=== PATIENT | male | born 1990 | race Caucasian/White ===

== ENCOUNTER 2017-05-14 23:17 | Inpatient (IN) | payer SELFPAY ==
[2017-05-15] MEDS ORDERED: Famotidine/PF 20 mg/2ml Vial ONE (00:13)
[2017-05-15] MEDS ORDERED: Ketorolac Tromethamine 30 MG/ML VIAL ONE (00:13)
[2017-05-15 00:54] LABS: #Basophils 0.1 thou/uL (0.0-0.2); #Eosinphils 0.1 thou/uL (0.0-0.7); #Lymphocytes 1.5 thou/uL (1.20-3.40); #Monocytes 0.8 thou/uL (0.11-0.59); %Basophils 0.7 % (0.0-1.0); %Eosinophils 1.1 % (0.0-10.0); %Lymphocytes 12.2 % (21.0-51.0); %Monocytes 6.2 % (0.0-10.0); %Neutrophils 79.8 % (42.0-75.0); Hemoglobin 14.5 g/dL (14.0-18.0); Mean Corpuscular HGB CONC 31.9 g/dL (32.0-36.0); Mean Corpuscular Hemoglobin 30.8 pg (27.0-31.0); Mean Corpuscular Volume 96.7 fl (80.0-94.0); Platelet Count 285 thou/uL (130-400); RBC Distribution Width 12.2 % (11.5-14.5); Red Blood Cell (RBC) Count 4.71 mill/uL (4.70-6.10); White Blood Cell (WBC) Count 12.5 thou/uL (4.8-10.8)
[2017-05-15 01:43] LABS: ALT (SGPT) 635 U/L (8-55); AST (SGOT) 526 U/L (5-34); Albumin 3.6 g/dL (3.5-5.0); Alkaline Phosphatase 61 U/L (40-150); Anion Gap 13 mmol/L (10-20); BUN (Urea Nitrogen) 14 mg/dL (8.9-20.6); Bilirubin, Total 1.4 mg/dL (0.2-1.2); Calc. Creatinine Clearance 0 mL/min (70-130); Calcium 8.5 mg/dL (7.8-10.44); Carbon Dioxide 23 mmol/L (22-29); Chloride 108 mmol/L (98-107); Estimated GFR-MDRD Greater than 90; Globulin 2.3 g/dL (2.4-3.5); Glucose 78 mg/dL (70-105); Lipase 20 U/L (8-78); Potassium 3.8 mmol/L (3.5-5.1); Protein, Total 5.9 g/dL (6.0-8.3); Sodium 140 mmol/L (136-145)
[2017-05-15 02:02] LABS: HBCM Index 0.09 S/CO (0-0.79); Hep A IgM AB Non-Reactive (NonReactive); Hep A IgM S/CO 0.13 S/CO (0-0.79); Hep B Surf Ag Non-Reactive S/CO (NonReactive); Hep C IgG Ab Non-Reactive (NonReactive); Hep C Index 0.07 S/CO (0-0.79); Hepatitis B Core IGM Abs Non-Reactive (NonReactive)
[2017-05-15 03:14] LABS: Acetaminophen Less than 6.0 mcg/mL (10.0-30.0); Alcohol Less than 10 mg/dL (Less than 10); Salicylate Less than 8.0 mg/dL (15.0-30.0)
[2017-05-15] MEDS ORDERED: Ondansetron HCl/PF 4 MG/2 ML Vial IVP PRN (03:38)
[2017-05-15] MEDS ORDERED: Acetaminophen 325 MG TAB PO PRN (03:38)
[2017-05-15 03:55] VITALS: BMI 21.6
[2017-05-15] MEDS: Sodium Chloride 0.9% 1,000 ML IV SCH ×3 (04:25→23:57)
[2017-05-15 05:05] LABS: INR-International Normal Ratio 1.4; PTT 34.2 SEC (22.9-36.1); Prothrombin Time 17.6 SEC (12.0-14.7)
[2017-05-15 05:10] LABS: Bilirubin, Direct 0.6 mg/dL (0.1-0.3); Bilirubin, Total 1.2 mg/dL (0.2-1.2)
[2017-05-15 05:14] LABS: ALT (SGPT) 690 U/L (8-55); AST (SGOT) 543 U/L (5-34); Albumin 3.2 g/dL (3.5-5.0); Alkaline Phosphatase 52 U/L (40-150); Anion Gap 10 mmol/L (10-20); BUN (Urea Nitrogen) 13 mg/dL (8.9-20.6); Bilirubin, Total 1.2 mg/dL (0.2-1.2); Calc. Creatinine Clearance 140 mL/min (70-130); Calcium 8.2 mg/dL (7.8-10.44); Carbon Dioxide 24 mmol/L (22-29); Chloride 109 mmol/L (98-107); Estimated GFR-MDRD Greater than 90; Gamma GT (GGT) 21 U/L (12-64); Glucose 78 mg/dL (70-105); Potassium 3.7 mmol/L (3.5-5.1); Protein, Total 5.2 g/dL (6.0-8.3); Sodium 139 mmol/L (136-145)
--- NOTE | 2017-05-15 05:44 | HP-2 ---
TIME AND DATE OF SERVICE: 3:15 a.m. on 05/15/2017 CODE STATUS: FULL CODE. PRIMARY CARE PHYSICIAN: Jeyson galindo. ATTENDING: Dr. Goss. RESIDENT: Dr. Vidal Barnes. HISTORIAN: The patient. CHIEF COMPLAINT: Nausea and vomiting. HISTORY OF PRESENT ILLNESS: Mr. Mack Rothman is a 26-year-old male with no past medical history w ho presents as a transfer from [place] for intractable nausea and vomiting. The patient states that the nausea and vomiting started a couple days ago. He was seen twice at an outside facility in the last 24 hours for vomiting and has continued to worsen. The patient states that he is unable to hold anything down, fluids or food. He also states that he has got abdominal pain that started yeste rday. The pain is located in the epigastric region and also in the right upper quadrant, has worse a fter eating. He also has worsened nausea after meals. The patient states that he has a long history of drinking alcohol. He endorsed drinking a couple cases of beer a day. He states that over the st couple days, he has not been able to drink as much beer due to the nausea and vomiting. He has be en drinking maybe 1-2 beers, yesterday he had one beer. He states that he has never had this type of abdominal pain or nausea or vomiting before. Patient also endorsed marijuana use, stating the last use was 1 week ago and he denied any other drugs; however, UDS in [place] a day ago was positive for methamphetamines, amphetamines and marijuana. In the ER in [place], the patient received m orphine, Phenergan and intravenous fluids. In the ER at [place], he received Bentyl, Toradol, Pep jace and 1 liter of normal saline bolus. The patient is a relatively poor historian due to overall me ntal status during encounter. PAST MEDICAL HISTORY: None. PAST SURGICAL HISTORY: Left arm surgery. ALLERGIES: Patient states he has no known drug allergies; however, ER report states that he is aller gic to ACETAMINOPHEN. MEDICATIONS: None. FAMILY HISTORY: Noncontributory. SOCIAL HISTORY: The patient endorses half pack of smoking per day for the last 15 years. Also, endo rses drinking a couple cases of beer each day and only drinking 1-2 beers over the last couple days. He also endorses marijuana use and denied any other drug use. The patient states he lives at home w ith his mother in [place]. REVIEW OF SYSTEMS: Twelve point review of systems including general, eyes, ENT, respiratory, CV, GI, , skin, musculoskeletal, neuro and psych were all reviewed and were negative, unless otherwise sta sakshi in the HPI. PHYSICAL EXAMINATION: VITAL SIGNS: Blood pressure 127/83, pulse 54, respiratory rate 16, temperature 98.8, pulse ox 96% on room air, current weight 63.5 kilograms. GENERAL: The patient was minimally alert throughout encounter. He was oriented x3, in no acute dist ress, thin. He was somnolent. His eyes were closed throughout the entire exam. He required constan t stimulation just to have him answer the questions. EYES: Pupils equal, round, react to light and accommodation. Extraocular muscles intact. Conjuncti vae within normal limits. ENT: Tympanic membranes pearly ocvarrubias without bulging or erythema. Nasal mucosa and oropharynx signif icant for dry mucous membranes. NECK: Supple, without lymphadenopathy or thyromegaly. CARDIOVASCULAR: Regular rate and rhythm. No murmurs or gallops. Slightly bradycardic. RESPIRATORY: Normal effort, no retractions. LUNGS: Clear to auscultation bilaterally. SKIN: Warm and dry without cyanosis or lesions. ABDOMEN: Soft, some right upper quadrant tenderness to palpation. Bowel sounds normoactive. No mas ses or distention. No rebound tenderness or rigidity. EXTREMITIES: No clubbing, cyanosis or edema. MUSCULOSKELETAL: Structure and tone within normal limits. Full range of motion. NEUROLOGIC: No focal deficits. Sensation within normal limits. Normal deep tendon reflexes 2/4. LABORATORY DATA AND IMAGING: White blood cell count 12.5, hemoglobin 14.5, hematocrit 45.5, 80% neut rophils, platelets 285. Sodium 140, potassium 3.8, chloride 108, carbon dioxide 23, BUN 14, creatini ne 0.74, glucose 78, calcium 8.5, total protein 5.9, albumin 3.6, total bilirubin 1.4, AST 526, ALT 6 35, alkaline phosphatase 61. Hepatitis A IgM antibody nonreactive, hepatitis B surface antigen nonre active, hepatitis B core IgM antibody nonreactive, hepatitis C IgG antibody nonreactive. Influenza A and B negative. Lipase 20. Right upper quadrant ultrasound showed no acute processes. ASSESSMENT AND PLAN: A 26-year-old male with nausea and vomiting for 2-3 days. 1. Intractable nausea and vomiting, suspect likely due to alcohol withdrawal. Admit to medical, Renan ran p.r.n. for nausea and vomiting. Intravenous fluids at 105 mL an hour. Check right upper quadran t ultrasound, coags, urine drug screen, CMP, blood cultures. Alcohol level in the ER was less than 1 0. 2. Suspected alcohol withdrawal. Agustín protocol. Zofran p.r.n. Check GGT. 3. Right upper quadrant abdominal pain, likely secondary to alcohol withdrawal/alcohol abuse and int ractable nausea and vomiting. Check abdominal x-ray and right upper quadrant ultrasound. Protonix p .o. daily. Blood cultures. 4. Elevated bilirubin. Check a fractionated bilirubin. Check right upper quadrant ultrasound. 5. Transaminitis, likely secondary to alcohol abuse. Hepatitis panel was negative in the ER. Check coags. 6. Known substance abuse. Patient has been positive for methamphetamines and marijuana in the past. Check UDS. 7. Deep venous thrombosis prophylaxis, sequential compression devices and walking program. 8. Diet: Clear liquid diet. 9. Activity: Walking program. Fall precautions. 10. Code status: Full code. Disposition and length of hospital stay: 2 days. Symptomatic medications will be provided. History and physical exam as well as management discussed with Dr. Goss.
--- NOTE | 2017-05-15 07:58 | ULT ---
PRELIMINARY REPORT/[facility]/EMERGENCY AFTER HOURS PROCEDURE: EXAM: US Abdomen Limited, Right Upper Quadrant EXAM DATE/TIME: Exam ordered 05/15/2017 1:28 AM CLINICAL HISTORY: 26 years old, male; Pain and signs and symptoms and abnormal findings; Abnormal lab test; Elevated li golden enzymes; Nausea and vomiting; Abdominal pain; Localized; Right upper quadrant (ruq) TECHNIQUE: Real-time ultrasound of the right upper quadrant with image documentation. COMPARISON: No relevant prior studies available. FINDINGS: Liver: Unremarkable. No mass. No intrahepatic bile duct dilation. Gallbladder: Minimal gallbladder sludge. No cholecystitis. Common bile duct: Unremarkable as visualized. No stones. No dilation. Pancreas: Unremarkable as visualized. Right kidney: Cluster of small calcifications in the inferior pole of the right kidney may be nonobst ructing stones or dystrophic calcification. No hydronephrosis. IMPRESSION: No acute findings. Thank you for allowing us to participate in the care of your patient. Dictated and Authenticated by: Jacobo Ayon MD 05/15/2017 2:17 AM Central Time ([place] & [place]) FINAL REPORT GALLBLADDER ULTRASOUND: HISTORY: Elevated LFTs. Abdominal pain COMPARISON: 02/24/3016. TECHNIQUE: Utilizing a multi-Hertz transducer, sonographic imaging of the right upper quadrant is performed in t he longitudinal and transverse plane. FINDINGS: I agree with the preliminary report by [facility]. No sonographic evidence of cholecystitis or cholelithias is. Increased echogenicity in the lower pole of the right kidney may represent cortical based calcif ications. POS: [facility]
--- NOTE | 2017-05-15 09:48 | HP ---
I have reviewed the history and physical of Dr. Vidal Barnes. I have discussed the case with Dr. Pablo lew and agree with his assessment and plan. Briefly, Mr. Rothman is a 26-year-old white male patient with no prior history of any serious medical illnesses, who presents from the [place] ER with intractable nausea and vomiting of at least 1 day's duration. Prior to yesterday, he had been drinking beer rather heavily. He drinks maybe a cou ple of 6 packs of beer per day. He had made several trips to the [facility] due to his naus ea and vomiting and was eventually transferred here. PHYSICAL EXAMINATION: GENERAL: On exam, Mr. Rothman is quite somnolent. He is arousable, and when arousable, he is orient ed and answers questions appropriately. VITAL SIGNS: His blood pressure is 127/80, respiratory rate is 16, and he is afebrile. His room air pulse ox is 96%. EARS, NOSE, AND THROAT: No erythema or exudate. NECK: Supple. HEAD: Shows no outward signs of trauma. CARDIAC: His heart rhythm is regular, without gallop or murmur noted. LUNGS: Clear to auscultation without rales, rhonchi, or wheezes. ABDOMEN: Very tender in the epigastric area. No guarding, rebound, or rigidity. The liver does not appear to be enlarged. EXTREMITIES: No edema. NEUROLOGIC: Other than the somnolence, he has no focal deficits. LABORATORY DATA: His acute hepatitis panel is negative. CBC: White count is 12,500, hemoglobin 14. 5, hematocrit 45.5 with an MCV of 97. Platelets are 285,000. Chemistries: Sodium 140, potassium 3. 8, chloride 108, bicarbonate 23, BUN 14, creatinine 0.74, glucose 78. His total bilirubin is slightl y elevated at 1.4. His GGT is 21, AST is 526, ALT is 635 with an alkaline phosphatase of 61. Toxicology negative for salicylate and acetaminophen, and his alcohol level is less than 10. ASSESSMENT: Acute abdominal pain and intractable nausea and vomiting, likely alcohol related. PLAN: Administered fluids. May consider EGD. Consider right upper quadrant ultrasound. Given his somnolence, we may need to consider a head CT, but he has no history of head trauma or fall.
[2017-05-15 09:49] LABS: INR-International Normal Ratio 1.3; PTT 32.2 SEC (22.9-36.1); Prothrombin Time 16.1 SEC (12.0-14.7)
--- NOTE | 2017-05-15 10:25 | RAD ---
CHEST ONE VIEW ABDOMEN TWO VIEWS: HISTORY: A 26-year-old male with nausea and vomiting and abdominal pain. COMPARISON: 05/14/2017 FINDINGS: Heart size is normal. The lungs are clear. There are a few scattered nonspecific air fluid levels i n the colon and stomach. No evidence for large or small bowel obstruction or free intraperitoneal ai r or overt calculus. IMPRESSION: Unremarkable chest one view and abdomen two views. POS: [facility]
--- NOTE | 2017-05-15 12:58 | CT ---
BRAIN CT WITHOUT IV CONTRAST: HISTORY: A 26-year-old male with head injury following trauma. COMPARISON: 01/23/2013. FINDINGS: There is no focal mass or midline shift. No intra- or extraaxial hemorrhage. There is some right ma xillary sinus mucosal disease. No other acute process. IMPRESSION: Unremarkable brain CT. No mass or bleed or other significant acute intracranial process. Right maxi llary sinus mucosal disease. POS: [facility]
[2017-05-15 17:47] LABS: Amphetamine Not Detected (NotDetected); Barbiturates Screen Not Detected (NotDetected); Benzodiazepine Screen Not Detected (NotDetected); Cocaine Metabolite Screen Not Detected (NotDetected); Medtox Control Line Valid? VALID (VALID); Medtox Reader # READER 1; Methadone Not Detected (NotDetected); Methamphetamine Detected (NotDetected); Opiate Screen Detected (NotDetected); Oxycodone Screen Not Detected (NotDetected); Phencyclidine (PCP) Not Detected (NotDetected); THC/Cannabinoid Screen Not Detected (NotDetected); Tricyclic Screen Not Detected (NotDetected)
[2017-05-16 05:10] LABS: #Basophils 0.1 thou/uL (0.0-0.2); #Eosinphils 0.3 thou/uL (0.0-0.7); #Lymphocytes 2.3 thou/uL (1.20-3.40); #Monocytes 0.8 thou/uL (0.11-0.59); #Neutrophils 3.5 thou/uL (1.40-6.50); %Basophils 1.1 % (0.0-1.0); %Eosinophils 4.7 % (0.0-10.0); %Lymphocytes 32.9 % (21.0-51.0); %Monocytes 11.5 % (0.0-10.0); %Neutrophils 49.8 % (42.0-75.0); Hemoglobin 13.6 g/dL (14.0-18.0); Mean Corpuscular HGB CONC 32.8 g/dL (32.0-36.0); Mean Corpuscular Hemoglobin 31.4 pg (27.0-31.0); Mean Corpuscular Volume 95.9 fl (80.0-94.0); Mean Platelet Volume 6.7 fL (7.4-10.4); Platelet Count 253 thou/uL (130-400); RBC Distribution Width 12.1 % (11.5-14.5); Red Blood Cell (RBC) Count 4.33 mill/uL (4.70-6.10)
[2017-05-16 05:28] LABS: ALT (SGPT) 676 U/L (8-55); AST (SGOT) 275 U/L (5-34); Albumin 3.1 g/dL (3.5-5.0); Alkaline Phosphatase 53 U/L (40-150); Anion Gap 10 mmol/L (10-20); BUN (Urea Nitrogen) 5 mg/dL (8.9-20.6); Calc. Creatinine Clearance 147 mL/min (70-130); Calcium 8.3 mg/dL (7.8-10.44); Carbon Dioxide 25 mmol/L (22-29); Chloride 108 mmol/L (98-107); Estimated GFR-MDRD Greater than 90; Globulin 2.3 g/dL (2.4-3.5); Glucose 83 mg/dL (70-105); Potassium 3.4 mmol/L (3.5-5.1); Protein, Total 5.4 g/dL (6.0-8.3); Sodium 140 mmol/L (136-145)
--- NOTE | 2017-05-16 06:23 | PDOC.FM ---
- Subjective Subjective: Pt feeling better this morning. N/V and light sensitivity has improved. ASE score has been 2. There were no acute events over night. - Objective MAR Reviewed: Yes Vital Signs & Weight: Vital Signs (12 hours) Temp Pulse Resp BP Pulse Ox 05/16/17 04:00 97.8 F 94 18 93/54 L 94 L 05/16/17 00:00 98.1 F 81 16 111/68 97 05/15/17 20:00 98.3 F 78 16 78 L 05/15/17 19:40 98.3 F 78 16 125/76 97 Weight Admit Weight 62.596 kg Weight 62.596 kg I&O: 05/14/17 05/15/17 05/16/17 06:59 06:59 06:59 Intake Total 360 Output Total 650 Balance -290 Result Diagrams: 05/16/17 04:31 05/16/17 04:31 <Live Reeder - Last Filed: 05/16/17 06:21> - Objective Vital Signs & Weight: Vital Signs (12 hours) Temp Pulse Resp BP Pulse Ox 05/16/17 08:31 97.8 F 76 12 115/74 95 05/16/17 04:00 97.8 F 94 18 93/54 L 94 L 05/16/17 00:00 98.1 F 81 16 111/68 97 Weight Admit Weight 62.596 kg Weight 62.596 kg I&O: 05/15/17 05/16/17 05/17/17 06:59 06:59 06:59 Intake Total 360 1760 Output Total 650 1900 Balance -290 -140 Result Diagrams: 05/16/17 04:31 05/16/17 04:31 <Eleazar Hylton - Last Filed: 05/16/17 11:36> Phys Exam - Physical Examination Constitutional: NAD HEENT: PERRLA, moist MMs Neck: no nodes, no JVD Respiratory: clear to auscultation bilateral Cardiovascular: RRR, no significant murmur Gastrointestinal: soft, positive bowel sounds mod epigastric tenderness Musculoskeletal: no edema Neurological: non-focal Psychiatric: normal affect, A&O x 3 Skin: no rash <Live Reeder - Last Filed: 05/16/17 06:21> Dx/Plan (1) Acute hepatitis Code(s): B17.9 - ACUTE VIRAL HEPATITIS, UNSPECIFIED Status: Acute (2) 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 Acute hepatitis - LFTs appear to have peaked and are improving - coags began to improve yesterday - Bili is normal - likely secondary to methamphetamine use - continue to monitor status. IVF until PO intake improves 2. Alcoholic hallucinosis - resolved 3. Polysubstance abuse - ASE score is 2. It has been 3 days since pts last drink. - Pt states that he wants to go to rehab, case management consult has been placed. <Live Reeder - Last Filed: 05/16/17 06:21> Attending Addendum - Attending Addendum I personally evaluated the patient and discussed the management with Dr. Reeder. I agree with the History, Examination, Assessment and Plan documented above with any addition or exceptions noted below. Feels better. Gaunt and fatigued appearing male in no distress. No abdominal tenderness. <Eleazar Hylton - Last Filed: 05/16/17 11:36>
[2017-05-16 07:18] LABS: INR-International Normal Ratio 1.2; PTT 28.5 SEC (22.9-36.1); Prothrombin Time 15.6 SEC (12.0-14.7)
[2017-05-16] MEDS ORDERED: FLU VACC QS2017-18 36 mo. & older 0.5 ML SYRINGE IM ONE (09:00)
[2017-05-16] MEDS: Sodium Chloride 0.9% 1,000 ML IV SCH ×2 (20:01→22:17)
[2017-05-17 05:48] LABS: ALT (SGPT) 423 U/L (8-55); AST (SGOT) 89 U/L (5-34); Albumin 3.1 g/dL (3.5-5.0); Alkaline Phosphatase 53 U/L (40-150); Anion Gap 10 mmol/L (10-20); BUN (Urea Nitrogen) 7 mg/dL (8.9-20.6); Bilirubin, Total 0.4 mg/dL (0.2-1.2); Calc. Creatinine Clearance 140 mL/min (70-130); Calcium 8.7 mg/dL (7.8-10.44); Carbon Dioxide 26 mmol/L (22-29); Chloride 108 mmol/L (98-107); Estimated GFR-MDRD Greater than 90; Globulin 2.4 g/dL (2.4-3.5); Glucose 109 mg/dL (70-105); Potassium 3.2 mmol/L (3.5-5.1); Protein, Total 5.5 g/dL (6.0-8.3); Sodium 141 mmol/L (136-145)
--- NOTE | 2017-05-17 07:03 | PDOC.FM ---
- Subjective Subjective: PT feeling much better today. Has been eating and drinking w/o n/v. Denies abd pain, chest pain, n/v, anxiety and all other symptoms in ROS. There were no acute events over night. - Objective MAR Reviewed: Yes Vital Signs & Weight: Vital Signs (12 hours) Temp Pulse Resp BP BP Pulse Ox 05/17/17 04:00 98.2 F 65 16 110/66 110/66 95 05/17/17 00:00 98.1 F 85 18 102/65 97 05/16/17 20:00 98 F 96 16 102/65 97 Weight Admit Weight 62.596 kg Weight 62.596 kg I&O: 05/16/17 05/17/17 05/18/17 06:59 06:59 06:59 Intake Total 360 1760 Output Total 650 1900 Balance -290 -140 Result Diagrams: 05/16/17 04:31 05/17/17 04:25 <Live Reeder - Last Filed: 05/17/17 11:56> - Objective Vital Signs & Weight: Vital Signs (12 hours) Temp Pulse Resp BP BP Pulse Ox 05/17/17 11:33 97.4 F L 83 16 114/68 95 05/17/17 08:00 97.4 F L 67 16 96 05/17/17 07:15 97.4 F L 67 16 104/62 94 L 05/17/17 04:00 98.2 F 65 16 110/66 110/66 95 Weight Admit Weight 62.596 kg Weight 62.596 kg I&O: 05/16/17 05/17/17 05/18/17 06:59 06:59 06:59 Intake Total 360 1760 Output Total 650 1900 Balance -290 -140 Result Diagrams: 05/16/17 04:31 05/17/17 04:25 <Eleazar Hylton - Last Filed: 05/17/17 13:46> Phys Exam - Physical Examination Constitutional: NAD HEENT: PERRLA, moist MMs, sclera anicteric Neck: no nodes, no JVD Respiratory: clear to auscultation bilateral Cardiovascular: RRR, no significant murmur Gastrointestinal: soft, non-tender, no distention, positive bowel sounds Musculoskeletal: no edema, pulses present Neurological: non-focal, normal sensation, moves all 4 limbs Lymphatic: no nodes Psychiatric: normal affect, A&O x 3 Skin: no rash <Live Reeder - Last Filed: 05/17/17 11:56> Dx/Plan (1) Acute hepatitis Code(s): B17.9 - ACUTE VIRAL HEPATITIS, UNSPECIFIED Status: Acute (2) Alcohol hallucinosis Code(s): F10.951 - ALCOHOL USE, UNSP W ALCOH-INDUCE PSYCH DISORDER W HALLUCIN Status: Resolved (3) Polysubstance (excluding opioids) dependence Code(s): F19.20 - OTHER PSYCHOACTIVE SUBSTANCE DEPENDENCE, UNCOMPLICATED Status: Chronic - Plan Plan: 1. Acute hepatitis - LFTs continue to improve - coags are stable - Bili is normal - likely secondary to methamphetamine use - continue to monitor status. Stop IVF today 2. Alcoholic hallucinosis - resolved 3. Polysubstance abuse - ASE score is 1-2. - Pt now does not want to go to rehab facility. Discussed the importance of stopping drug and etoh abuse 4. Hypokalemia - asymptomatic - replace po today ready for dc today <Live Reeder - Last Filed: 05/17/17 11:56> Attending Addendum - Attending Addendum I personally evaluated the patient and discussed the management with Dr. Reeder. I agree with the History, Examination, Assessment and Plan documented above with any addition or exceptions noted below. He feels and looks much better this a.m. More alert and interactive. Exam repeated by me is consistent with above. ALT has come down into the 400s range. We discussed the gravity of his liver disease relationship to alcohol intake. He understands that if he continues to drink Any EtOH he may have fulminant liver failure and . I encourage him to reconsider a treatment program, establishing with [facility] or [facility] for primary care follow up and liver enzyme testing in 3 to 4 weeks and getting away from current friends and family members who drink alcohol and offer/encourage him to drink alcohol. Stable for discharge home today with the above precautions/instructions. [facility] <Eleazar Hylton - Last Filed: 05/17/17 13:46>
[2017-05-17] MEDS ORDERED: Potassium Chloride 20 MEQ TAB PO SCH (07:15)
[2017-05-17 08:11] VITALS: TEMP 97.4
[2017-05-17 12:00] VITALS: BP 114/68
--- NOTE | 2017-05-17 20:05 | DIS-2 ---
DATE OF ADMISSION: 05/15/2017. DATE OF DISCHARGE: 05/17/2017. RESIDENT: Live Reeder DO ADMITTING ATTENDING: Eddie Goss MD DISCHARGE ATTENDING: Eleazar Hylton M.D. CONSULTATIONS: None. PROCEDURES: None. PRIMARY DIAGNOSIS: Acute hepatitis. SECONDARY DIAGNOSES: Polysubstance abuse, alcohol abuse, alcoholic hallucinosis and hyperbilirubinem ia. DISCHARGE MEDICATIONS: None. DISCONTINUED MEDICATIONS: None. HOSPITAL COURSE: The patient was admitted upon transfer from outside facility for intractable nausea , vomiting, and elevated LFTs. Tox screen upon admission was positive for cannabinoids, methamphetam bill, amphetamines. At the time of admission, patient's left LFTs were AST of 526, ALT of 635. Upon questioning, the patient stated that he drank over a case of beer per day in addition to these other substances; however, he had been becoming ill about 2 days prior and had dramatically decreased his alcohol intake. On the first day of admission, the patient experienced some alcoholic hallucinosis a nd he was hallucinating presence of the people who were not in the room. Patient was on his protocol throughout the admission initially has scores of 3-4 and this quickly trended down to 1-2. Patient initially had a total bilirubin of 1.4; however, this corrected by the second day of admission. Init ially, the LFTs continued to rise. Eventually, there is a maximum AST of 543 and maximum ALT of 690; on the 2nd of admission, his ALTs began to trend down. At the time of diagnosis, AST was 89, ALT wa s 423. The patient was able to eat, nausea and vomiting has subsided. There is no abdominal pain. We had a lengthy discussion about the necessity to discontinue use of alcohol and illicit drugs. The patient stated that he did not want to go to inpatient rehabilitation facility because he felt that when he went with pass, it was of no use and that he needed to "just make the decision to stop drinki ng." I was also explained to the patient that he needed to find a primary care physician and to poss ibly be written for Antabuse and receive his hepatitis B series if needed. Patient was given informa tion for [facility] as the patient is uninsured. DISPOSITION: Stable. DISCHARGE INSTRUCTIONS: 1. Location: Home. 2. Diet: Regular, without alcohol. 3. Activity: Ad sola. 4. Followup: With PCP within 1 week.
== END 2017-05-17 16:33 | disposition home or self-care (01) | DRG 897 ==
LOC: ERS 23:17 → SURG B 05-15 03:35
PROVIDERS: ADMIT Family Medicine; ATTEND Family Medicine
DX: F10.230 Alcohol dependence with withdrawal, uncomplicated (principal); F10.251 Alcohol dependence with alcohol-induced psychotic disorder with hallucinations; B17.9 Acute viral hepatitis, unspecified; F19.20 Other psychoactive substance dependence, uncomplicated; E80.6 Other disorders of bilirubin metabolism; F12.10 Cannabis abuse, uncomplicated; F15.10 Other stimulant abuse, uncomplicated; F17.210 Nicotine dependence, cigarettes, uncomplicated; R74.0 Nonspecific elevation of levels of transaminase and lactic acid dehydrogenase [LDH]
CPT/HCPCS: 36415; 70450; 74022; 76705; 80053; 80074; 80306; 80307; 82140; 82247; 82977; 83690; 85025; 85610; 85730; 87040; 87804; 96361; 96374; 96375; A4216; J1885; J2405; S0028

== ENCOUNTER 2018-11-11 17:25 | Emergency (ER) | payer SELFPAY ==
--- NOTE | 2018-11-11 19:37 | ULT ---
LEFT LOWER EXTREMITY VENOUS ULTRASOUND 11/11/18 COMPARISON: CT 11/11/18. HISTORY: Left leg pain and edema. TECHNIQUE: Multiplanar covarrubias scale and color Doppler images were obtained in a left lower extremity venous ultras ound. Spectral analysis of the Doppler waveforms were performed. FINDINGS: The left common femoral vein, profunda femoral vein, superficial femoral vein, popliteal vein are nor mal in appearance without visible thrombus. These vessels demonstrate normal compression, flow and au gmentation. The posterior tibial vein and greater saphenous vein are also patent. There is a palpable area in the left groin. This represents the abnormality seen on CT and likely rep resents a hematoma. IMPRESSION: 1. No evidence of left lower extremity DVT. 2. Left inguinal hematoma. POS: [facility]
== END 2018-11-11 19:56 | disposition home or self-care (01) ==
LOC: ERS 17:25
DX: S80.12XA Contusion of left lower leg, initial encounter (principal); F17.210 Nicotine dependence, cigarettes, uncomplicated; W22.8XXA Striking against or struck by other objects, initial encounter

== ENCOUNTER 2018-11-18 17:39 | Inpatient (IN) | payer SELFPAY ==
[~2018-11-18 17:39] MED LIST: Lidocaine 1% PF 5 ML VIAL ONE; PROPOFOL 200 MG/20 ML VIAL ONE
[2018-11-18] MEDS ORDERED: Morphine 4 MG/ML VIAL ONE (18:37)
[2018-11-18] MEDS ORDERED: Ketorolac Tromethamine 30 MG/ML VIAL ONE (18:37)
--- NOTE | 2018-11-18 19:38 | HP ---
CHIEF COMPLAINT: Painful left groin mass. HISTORY OF PRESENT ILLNESS: The patient is a 28-year-old white male. He has a history of alcoholism, but he tells me he has drank nothing for about 5 months now. He still smokes cigarettes at least a pack per day. 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 While he was at work 4 to 5 weeks ago, he somehow got caught between a couple of objects that led to an injury in his upper inner left thigh, right at the left groin. He noted that the pain progressed in that over the course of several weeks and about a week ago, he went into the emergency room in [place]. Laboratory studies at that time revealed elevated white blood cell count at 16. An ultrasound was obtained revealing evidence of a left inguinal hematoma. Apparently, they were also concerned about a DVT and this was ruled out. Left lower extremity CAT scan and a pelvis x-ray were obtained at that time as well. The CAT scan showed a fluid collection measuring 4.4 x 7.6 cm with surrounding stranding, that was again felt to be a hematoma. The patient returned today, complaining of progressive pain. He states it hurts far too much for him to walk. He is not sure if he has had a fever at home. He denies vomiting, but has had a diminished appetite. Repeat imaging in the emergency room in [place] revealed interval increase in the size of the left groin mass and that now measures 6.5 x 11 x 8.5 cm. Laboratory studies show that his white blood cell count has increased from 16 up to 19.8. His hemoglobin is stable at 11.5. Chemistry profile is unremarkable. His albumin is a little diminished at 3.2. Past medical history is significant only for alcoholism. He tells me that he was told that his liver "shut down" and that is what led him to stop drinking. From reviewing his labs, it appeared that he never developed thrombocytopenia. He did have diminished albumin level of 3.1 while he was drinking. He had markedly elevated transaminases, which are now entirely normal. PAST SURGICAL HISTORY: He had multiple operations involving his left arm in regard to the fractures in his left arm. He states that these operations occurred over 10 years ago. MEDICATIONS: None. ALLERGIES: NO KNOWN DRUG ALLERGIES. PERSONAL AND SOCIAL HISTORY: He is single and has never been . He has no children. He smokes about a pack per day and dips about a half can per day. He does not drink at all. He smokes marijuana "once in a [place] panda." He usually works as a franchise business consultant. REVIEW OF SYSTEMS: Otherwise unremarkable. FAMILY HISTORY: Noncontributory. PHYSICAL EXAMINATION: GENERAL: He is a thin, small, white male. He is 5 feet and 7 inches, and weighs 130 pounds. He is resting in bed, but in obvious discomfort. He is alert and oriented x3. HEAD, EYES, EARS, NOSE, AND THROAT: Unremarkable. NECK: Supple without mass or tenderness. LUNGS: Clear to auscultation throughout. CARDIAC: Regular rate and rhythm without murmur. ABDOMEN: Soft, nontender, and nondistended. EXTREMITIES: In his upper inner left thigh, there is an erythematous mass that is exquisitely tender. This appears to measure close to 10 cm in maximum dimension. I am unable to palpate this at all because of the discomfort that it causes. He appears to have normal male external genitalia. Rest of extremities unremarkable. ASSESSMENT: The patient with an area that based upon his exam and his labs and his CT scan seems consistent with an infected hematoma. I would recommend incision and drainage in the operating room. Depending upon findings, there was a good chance that this will have to be packed open to allow it to heal by secondary intention. He has already been given antibiotics in [place] and he received cefepime and vancomycin before his transfer. I have discussed all this in detail with the patient as well as potential risks. He understands and agrees to proceed with surgery at this time. Job ID: [id number]
[2018-11-18] MEDS ORDERED: Fentanyl 100 MCG/2 ML VIAL ONE ×2 (19:56→21:17)
[2018-11-18] MEDS ORDERED: Midazolam HCl 2 mg/2 ml Vial ONE (19:56)
[2018-11-18] MEDS ORDERED: Bupivacaine/Epinephrine 0.25% 30 ML VIAL ONE (20:10)
[2018-11-18] MEDS ORDERED: Promethazine HCl 25 MG/ML VIAL SLOW IVP PRN (20:34)
[2018-11-18] MEDS ORDERED: Promethazine HCl 25 MG/ML VIAL IM PRN (20:34)
[2018-11-18] MEDS ORDERED: Ondansetron HCl/PF 4 MG/2 ML Vial IVP PRN (20:34)
[2018-11-18] MEDS ORDERED: Dextrose 5% in Water 1,000 ML IV PRN (20:47)
[2018-11-18] MEDS ORDERED: Ondansetron PF 4 MG/2 ML Vial IVP PRN (20:47)
[2018-11-18] MEDS ORDERED: Morphine 2 MG/ML SYRINGE SLOW IVP PRN (20:47)
[2018-11-18] MEDS ORDERED: Dextrose 50% Abboject 50 ML SYRINGE SLOW IVP PRN (20:47)
[2018-11-18] MEDS: HYDROcodone/Acetaminophen 10/325 mg Tablet PO PRN (22:14)
[2018-11-18] MEDS: Famotidine 20 MG TAB PO SCH (22:15)
[2018-11-18] MEDS: Sodium Chloride 0.9% 1,000 ML IV SCH (22:15)
[2018-11-18 22:59] VITALS: BMI 21.4
[2018-11-19] MEDS: HYDROcodone/Acetaminophen 10/325 mg Tablet PO PRN ×2 (05:09→17:32)
[2018-11-19 05:23] LABS: #Basophils 0.1 thou/uL (0.0-0.2); #Eosinphils 0.3 thou/uL (0.0-0.7); #Monocytes 1.4 thou/uL (0.11-0.59); #Neutrophils 9.8 thou/uL (1.40-6.50); %Basophils 0.6 % (0.0-1.0); %Eosinophils 2.2 % (0.0-10.0); %Lymphocytes 20.7 % (21.0-51.0); %Monocytes 9.8 % (0.0-10.0); %Neutrophils 66.7 % (42.0-75.0); Hemoglobin 11.1 g/dL (14.0-18.0); Mean Corpuscular HGB CONC 31.3 g/dL (32.0-36.0); Mean Corpuscular Volume 89.5 fL (78.0-98.0); Mean Platelet Volume 6.4 fL (7.4-10.4); Platelet Count 509 thou/uL (130-400); RBC Distribution Width 12.5 % (11.5-14.5); Red Blood Cell (RBC) Count 3.96 mill/uL (4.70-6.10); White Blood Cell (WBC) Count 14.7 thou/uL (4.8-10.8)
[2018-11-19] MEDS: Sodium Chloride 0.9% 1,000 ML IV SCH ×3 (06:36→17:33)
[2018-11-19] MEDS: Famotidine 20 MG TAB PO SCH ×2 (08:32→21:22)
[2018-11-19] MEDS ORDERED: hydrALAZINE 20 MG/ML VIAL ONE (10:43)
[2018-11-19] MEDS ORDERED: Morphine 4 MG/ML VIAL ONE (13:06)
[2018-11-19] MEDS ORDERED: Morphine 4 MG/ML VIAL SLOW IVP SCH (13:30)
--- NOTE | 2018-11-19 14:09 | PRG ---
DATE OF SERVICE: 11/19/2018 SUBJECTIVE: Mr. Rothman is postoperative day #1 from drainage of a large left groin abscess. He tells me that he feels better than he did before surgery. Dressing is intact and there has been no drainage. He really has not had a bed. OBJECTIVE: VITAL SIGNS: On examination, he is afebrile, pulse is 81, blood pressure 107/66. LUNGS: Clear to auscultation. ABDOMEN: Benign. EXTREMITIES: Groin dressing was intact. It was removed uneventfully. There was no evidence of purulence within the large wound. There was substantial pain with dressing removal and even more pain with replacement of a new dressing. There is nobody with him here to explain dressing changes. LABORATORY DATA: His white blood cell count is 14.7, coming down from 20. Hemoglobin is 11.1. ASSESSMENT AND PLAN: The patient with a large left groin abscess that has been drained surgically last night. Although it is widely open, it will require dressing changes over the next couple of weeks. Because of the extent of pain that he has, I do not think that he or his family will be able to transition this dressing at home. There do not appear to be any satisfactory outpatient wound care options for this uninsured patient. We will therefore leave him here in the hospital performing wound care over at least the next couple of days. Job ID: [id number]
[2018-11-20] MEDS: HYDROcodone/Acetaminophen 10/325 mg Tablet PO PRN ×3 (03:22→23:40)
[2018-11-20] MEDS: Famotidine 20 MG TAB PO SCH ×2 (11:00→20:32)
[2018-11-20] MEDS: Morphine 4 MG/ML VIAL SLOW IVP SCH (12:18)
[2018-11-20] MEDS: Lidocaine 4% Topical Sol 50 ML BOT TOP SCH (12:58)
--- NOTE | 2018-11-20 13:52 | OP ---
DATE OF PROCEDURE: 11/18/2018 PREOPERATIVE DIAGNOSIS: Left groin abscess. POSTOPERATIVE DIAGNOSIS: Left groin abscess. OPERATION PERFORMED: Incision and drainage of left groin abscess. ANESTHESIA: General endotracheal. INDICATIONS: The patient is a 28-year-old white male, who has a large visible painful mass in his anterior groin. This was suspected to be a hematoma related to an injury he sustained about a month ago. He has exquisite pain from this. He is taken to the operating room at this time for incision and drainage. DESCRIPTION OF OPERATION: Informed consent was obtained. The patient was taken to the operating room, where general endotracheal anesthesia was obtained with the patient in supine position. The left groin was prepped with ChloraPrep and draped in sterile fashion. Local anesthetic was infiltrated circumferentially using 0.25% Marcaine with epinephrine. Incision was created over the mass. I immediately encountered copious volume of purulent material. Cultures were obtained. I then widely opened the abscess for a total length of incision of about 9 cm. I opened all loculations. No real debridement was necessary. There was diffuse oozing within the wound because of the severe inflammation. Hemostasis was obtained with electrocautery. The wound was irrigated with saline and subsequently peroxide. I then packed with peroxide moistened gauze and placed an external gauze dressing. There were no complications. The patient tolerated the procedure well and was taken to recovery room in stable condition. This abscess measures about 9 cm in length by about 4 to 5 cm in depth. Job ID: [id number]
[2018-11-20] MEDS: Sodium Chloride 0.9% 1,000 ML IV SCH (14:12)
--- NOTE | 2018-11-20 15:02 | PRG ---
DATE OF SERVICE: 11/20/2018 SUBJECTIVE: Mr. Rothman is postoperative day #2 from drainage of a large anterior left groin abscess. Cultures have revealed this is Staphylococcus aureus, but sensitivities are pending. He continues on Levaquin. He has had dressing change yesterday and a wound VAC was placed today. He has no new complaints. On examination, he is afebrile. Pulse is 78 to 89, blood pressure 120/76. Full examination is without abnormality except for his left groin. The wound appears to be healing nicely and has healthy granulation tissue. PLAN: Continue with wound care. The VAC has been placed today. Hopefully, we will be able to obtain an outpatient [facility] wound VAC and he will be able to be discharged in the next day or two with outpatient Wound Care followup. Job ID: [id number]
[2018-11-21] MEDS: HYDROcodone/Acetaminophen 10/325 mg Tablet PO PRN ×3 (05:35→19:52)
[2018-11-21] MEDS: Famotidine 20 MG TAB PO SCH ×2 (08:31→19:55)
[2018-11-21] MEDS: Lidocaine 4% Topical Sol 50 ML BOT TOP SCH (09:31)
[2018-11-21] MEDS ORDERED: Sulfameth/Trimethoprim DS 800-160mg TAB PO SCH (11:45)
--- NOTE | 2018-11-21 17:30 | PRG ---
DATE OF SERVICE: 11/21/2018 Mr. Rothman is postoperative day #3 from incision and drainage of left groin abscess. He has no new complaints. Wound VAC is functioning. He is out of bed for the first time since the surgery. On examination, he is afebrile, pulse 73, and blood pressure 101/62. Examination is unremarkable. VAC is in place on his left upper thigh/left groin. He seems to be doing well following incision and drainage of his large abscess. Request for home wound VAC has been made. Hopefully, this will be available tomorrow. If not, may need to consider gauze dressing changes. Additionally, his cultures came back revealing MRSA. He has been switched from Levaquin to Bactrim. Job ID: [id number]
[2018-11-21] MEDS: Sulfameth/Trimethoprim DS 800-160mg TAB PO SCH (19:55)
[2018-11-22] MEDS: HYDROcodone/Acetaminophen 10/325 mg Tablet PO PRN ×2 (04:23→16:39)
[2018-11-22] MEDS: Sulfameth/Trimethoprim DS 800-160mg TAB PO SCH ×2 (08:08→20:09)
[2018-11-22] MEDS: Famotidine 20 MG TAB PO SCH ×2 (08:08→20:09)
[2018-11-22] MEDS: Lidocaine 4% Topical Sol 50 ML BOT TOP SCH (08:08)
[2018-11-22] MEDS: Morphine 4 MG/ML VIAL SLOW IVP SCH (14:41)
--- NOTE | 2018-11-22 15:45 | DIS ---
DATE OF ADMISSION: 11/18/2018 DATE OF DISCHARGE: 11/22/2018 ADMISSION DIAGNOSIS: Left groin abscess. DISCHARGE DIAGNOSIS: Left groin abscess. OPERATION AND PROCEDURES PERFORMED: Incision and drainage of left groin abscess. ADMISSION HISTORY: The patient is a 28-year-old white male, who presented with a painful mass in his left groin. This was previously presumed to be a hematoma. He had elevated white blood cell count, obvious pain. I have recommended incision and drainage in the operating room. HOSPITAL COURSE: He underwent uneventful incision and drainage. There was a large volume of purulent material. Cultures have revealed MRSA. He has undergone wound care subsequently. This was initially with gauze dressing changes and subsequently with a wound VAC. He has very poor pain tolerance during dressing changes. Today when he is 4 days out from his procedure, when the outpatient wound VAC was placed, he still did not tolerate the procedure well. Nonetheless, he is doing well overall. He is afebrile. Vital signs are normal. He is tolerating his diet. He is able to ambulate. He is voiding well. His laboratory studies are normal as are his vital signs. He is stable for discharge home with outpatient wound VAC. He will follow up with outpatient wound care center for dressing changes twice per week, and I will see him back in 2 weeks in my office for routine followup. Job ID: [id number]
[2018-11-23] MEDS: HYDROcodone/Acetaminophen 10/325 mg Tablet PO PRN ×3 (01:11→17:21)
[2018-11-23] MEDS: Famotidine 20 MG TAB PO SCH ×2 (08:11→21:08)
[2018-11-23] MEDS: Sulfameth/Trimethoprim DS 800-160mg TAB PO SCH ×2 (08:11→21:07)
[2018-11-23] MEDS: Lidocaine 4% Topical Sol 50 ML BOT TOP SCH ×2 (08:12→11:35)
[2018-11-23 20:37] VITALS: BP 100/67; TEMP 97.9
== END 2018-11-23 21:16 | disposition home or self-care (01) | DRG 581 ==
LOC: ERS 17:39 → SURG A 20:35
PROVIDERS: ADMIT Specialist; ATTEND Specialist
PROC: 0Y960ZZ Drainage of Left Inguinal Region, Open Approach (ICD-10-PCS; principal; 2018-11-20)
DX: L02.214 Cutaneous abscess of groin (principal); B95.62 Methicillin resistant Staphylococcus aureus infection as the cause of diseases classified elsewhere; F17.210 Nicotine dependence, cigarettes, uncomplicated
CPT/HCPCS: 36415; 85025; 87070; 87077; 87186; 87205; 96374; 96375; J0131; J0360; J1885; J2001; J2250; J2270; J2704; J3010

== ENCOUNTER 2018-11-25 22:16 | Emergency (ER) | payer SELFPAY ==
[2018-11-25] MEDS ORDERED: Morphine 4 MG/ML VIAL ONE (23:17)
== END 2018-11-25 23:35 | disposition home or self-care (01) ==
LOC: ERS 22:16
DX: T81.89XA Other complications of procedures, not elsewhere classified, initial encounter (principal); F17.210 Nicotine dependence, cigarettes, uncomplicated
CPT/HCPCS: 96372; 99281; J2270

== ENCOUNTER 2018-11-30 15:14 | Outpatient (CLI) | payer SELFPAY ==
[~2018-11-30 15:14] MED LIST changes: -Lidocaine 1% PF 5 ML VIAL ONE; -PROPOFOL 200 MG/20 ML VIAL ONE; +Sodium Chloride 0.9% 15 ML NEB ONE
== END 2018-11-30 15:15 | disposition home or self-care (01) ==
LOC: WCC 15:14
PROVIDERS: ATTEND Family Medicine
DX: T81.89XD Other complications of procedures, not elsewhere classified, subsequent encounter (principal)
CPT/HCPCS: 97605; A4218

== ENCOUNTER 2020-09-21 15:13 | Emergency (ER) | payer SELFPAY ==
[2020-09-21 15:59] LABS: Bilirubin Negative (Negative); Blood, Urine Negative (Negative); Clarity Clear (Clear); Glucose, Urine (Dipstick) Normal (Negative); Ketone, Urine Negative (Negative); Leukocyte Negative Leu/uL (Negative); Nitrite Negative (Negative); Protein, Urine (Dipstick) Negative (Neg-Trace); Specific Gravity, Urine 1.012 (1.002-1.036); Urobilinogen Normal mg/dL (Less than 2)
[2020-09-21 16:09] LABS: #Basophils 0.1 thou/uL (0.0-0.2); #Eosinphils 0.5 thou/uL (0.0-0.7); #Lymphocytes 2.1 thou/uL (1.20-3.40); #Monocytes 0.7 thou/uL (0.11-0.59); #Neutrophils 4.4 thou/uL (1.40-6.50); %Basophils 0.8 % (0.0-1.0); %Eosinophils 6.4 % (0.0-10.0); %Lymphocytes 26.3 % (21.0-51.0); %Monocytes 9.5 % (0.0-10.0); %Neutrophils 56.9 % (42.0-75.0); Hemoglobin 13.4 g/dL (14.0-18.0); Mean Corpuscular HGB CONC 32.4 g/dL (32.0-36.0); Mean Corpuscular Volume 89.7 fL (78.0-98.0); Mean Platelet Volume 7.2 fL (7.4-10.4); Platelet Count 315 thou/uL (130-400); RBC Distribution Width 12.1 % (11.5-14.5); Red Blood Cell (RBC) Count 4.61 mill/uL (4.70-6.10); White Blood Cell (WBC) Count 7.8 thou/uL (4.8-10.8)
[2020-09-21 16:30] LABS: ALT (SGPT) 12 U/L (8-55); AST (SGOT) 11 U/L (5-34); Albumin 4.2 g/dL (3.5-5.0); Alkaline Phosphatase 81 U/L (40-110); Anion Gap 10 mmol/L (10-20); BUN (Urea Nitrogen) 10 mg/dL (8.9-20.6); Bilirubin, Total 0.5 mg/dL (0.2-1.2); Calc. Creatinine Clearance 0 mL/min (70-130); Calcium 9.6 mg/dL (7.8-10.44); Carbon Dioxide 26 mmol/L (22-29); Chloride 107 mmol/L (98-107); Globulin 3.1 g/dL (2.4-3.5); Glucose 84 mg/dL (70-105); Potassium 4.5 mmol/L (3.5-5.1); Protein, Total 7.3 g/dL (6.0-8.3); Sodium 138 mmol/L (136-145)
[2020-09-21] MEDS ORDERED: Ondansetron ODT 4 MG TAB ONE (17:00)
[2020-09-21] MEDS ORDERED: Dicyclomine 20 MG TAB ONE (17:00)
[2020-09-21] MEDS ORDERED: Promethazine HCl 25 MG/ML VIAL ONE (17:35)
== END 2020-09-21 17:40 | disposition home or self-care (01) ==
LOC: ERS 15:13
DX: R11.2 Nausea with vomiting, unspecified (principal); K72.90 Hepatic failure, unspecified without coma; Z87.19 Personal history of other diseases of the digestive system; Z87.891 Personal history of nicotine dependence; Z87.09 Personal history of other diseases of the respiratory system
CPT/HCPCS: 36415; 80053; 81003; 85025; 96372; 99284; J2550; Q0162

== ENCOUNTER 2020-10-03 14:05 | Emergency (ER) | payer SELFPAY | END 2020-10-03 15:43 | disposition home or self-care (01) | LOC: ERS 14:05 | DX: R05 Cough (principal); R06.02 Shortness of breath; Z87.19 Personal history of other diseases of the digestive system; Z87.891 Personal history of nicotine dependence | CPT/HCPCS: 71046 ==

== ENCOUNTER 2020-12-17 13:54 | Emergency (ER) | payer SELFPAY ==
[2020-12-17] MEDS ORDERED: Boostrix 0.5 ML (Tdap) VIAL ONE ×2 (14:55→14:56)
== END 2020-12-17 15:15 | disposition home or self-care (01) ==
LOC: ERS 13:54
DX: L03.115 Cellulitis of right lower limb (principal); L03.114 Cellulitis of left upper limb; Z87.891 Personal history of nicotine dependence
CPT/HCPCS: 90471; 90715